=== PATIENT | male | born 1945 | race Caucasian/White ===

== ENCOUNTER 2019-03-30 07:47 | Day surgery (SDC) | payer MEDICARE, OTHER, SELFPAY ==
[2019-03-30] VITALS (8 sets, daily range): BP systolic 89–122; BP diastolic 52–83; PULSE 66–93; RESP 16; TEMP 36.4–36.8; O2SAT 92–99; BMI 33.2
[2019-03-30] MEDS: Cefazolin 2 GM in 0.9% Normal Saline 100 ML IV (10:23)
--- NOTE | 2019-03-30 10:24 | PCM.DC.POR ---
Discharge Diet: No Restrictions Discharge Activity: Return to Normal Activity, May not drive while taking narcotic pain medications. Call your doctor if your incision/area has: Continuous Slow Oozing, Foul Smelling Discharge Call your doctor if you observe: Fever of 101 or Higher Additional Dressing/Incision Instructions:: Leave dressings in place. May get wet in shower. Do not soak - no tub baths/swimming Allergies/Adverse Reactions: Allergies No Known Allergies Allergy (Verified 03/29/19 14:16) Medications to take at Discharge Amlodipine Besylate [Norvasc] 10 mg PO DAILY 03/29/19 Aspirin [Aspir-Low] 81 mg PO QHS 03/29/19 Atorvastatin Calcium [Lipitor] 40 mg PO QHS 03/29/19 Cholecalciferol (Vitamin D3) [Vitamin D3] 1 tab PO DAILY 03/29/19 Multivit-Min/FA/Lycopen/Lutein [Centrum Silver Men Tablet] 1 ea PO DAILY 03/29/19 Prasterone (Dhea) [Dhea 25] 25 mg PO MOWEFR 03/29/19 RX: Benazepril HCl 20 mg PO DAILY 03/29/19 Hydrocodone Bitart/Apap 5-325 [[place] 5MG-325MG] 1 tab PO Q8H PRN PRN 4 Days #10 tab 03/30/19 The following prescriptions were given: Hydrocodone Bitart/Apap 5-325 [[place] 5MG-325MG] 1 tab PO Q8H PRN PRN 4 Days #10 tab PRN Reason: Pain Prescription Printed Primary Care Physician: Mika Garcia [Primary Care Provider] - Test Results: Test results from this visit will be discussed in further detail at your follow-up appointment, if applicable. Please Follow Up With: Linette Britton MD - When: as per needed
--- NOTE | 2019-03-30 11:18 | PCM.OPRPT ---
Report of Operation Date of Procedure: 03/30/19 Pre-Operative Diagnosis: T cell lymphoma, need for IV access for chemotherapy Post-Operative Diagnosis: same Surgery/Procedure Performed:: placement of permanent tunnelled right internal jugular catheter with subcutaneous port Description of Surgical Findings:: normal right internal jugular anatomy to SVC Type of Anesthesia:: Local MAC Anesthesiologist: Jeffrey Mcclendon Specimen's removed: none Estimated Blood Loss (mL): < 10 ml Fluids Replaced: 1000 ml RL Description of Procedure: After informed consent was given, the patient was brought to the operating room. Appropriate time out protocol was followed. He was then placed in the supine position. He was then given IV conscious sedation for anesthesia. The patient?s upper chest and neck were then prepped with a surgical skin preparation and sterile surgical drapes were placed. The ultrasound transducer was brought up within a sterile sheath and placed on the patient's right neck. The right internal jugular vessel was thus identified. The skin at that site was then infiltrated with local anesthetic. A needle trocar was then inserted into the right internal jugular vein and this was visualized with the US transducer. There was good aspiration of venous blood. A wire was then threaded into the needle trocar and this was visualized under fluoroscopy to ensure that the wire was in the right internal jugular vein and followed down to the SVC. Once this was done, then the needle trocar was removed. A small skin reji was made with an 11 blade knife at the wire entrance site. The dilator with the introducer sheath attached was then placed over the wire into the right internal jugular vein via the Seldinger technique and this was visualized under fluoroscopy. The dilator and sheath were in proper position as visualized by fluoroscopy. The wire and dilator were then removed. The catheter was then threaded into the introducer sheath and was positioned with its tip at the junction of the superior vena cava and the right atrium as visualized under fluoroscopy. The catheter was flushed with a heparin saline mixture prior to placement. A subcutaneous pocket was then created caudad to the catheter insertion site. A transverse skin incision was made after the skin and subcutaneous tissues were infiltrated with local anesthetic. Blunt dissection was then used to create a space large enough for placement of the subcutaneous port. Hemostasis was carefully controlled with electrocautery. The port was sutured to the subcutaneous fascia using vicryl suture at three sites. The catheter was then tunneled into the subcutaneous pocket. The excess catheter was transected. The catheter was then attached to the subcutaneous port using information and data architect analyst?s guidelines. The port was then placed in the subcutaneous pocket and the sutures were ligated. The subdermal incisional sites were reapproximated with interrupted vicryl suture. The port was accessed and there was good aspiration of blood, it was then flushed and locked with heparnized saline. The skin was reapproximated with monocryl suture in a subcuticular fashion. Cavilon and steristrips were used for reinforcement of the skin closure and a sterile opsite dressing was applied. The patient was brought to the Recovery Room in stable condition. - Complications none noted - Admit VTE Documentation VTE Present on Admission: Yes VTE Mechan Device Prophylaxis: SCD's
--- NOTE | 2019-03-30 11:33 | RAD_ITS ---
STUDY: X-RAY CHEST REASON FOR EXAM: Male, 73 years old. Port placement TECHNIQUE: Single AP portable view of the chest. Second film is a copy of the first adjusted for line visualization COMPARISON: None. FINDINGS: Right subclavian central venous port is in place, tip is in the mid SVC, no pneumothorax. The lungs are clear and expanded. There is no demonstrated pleural abnormality. Normal size heart. Normal mediastinum and brittnee. Normal visualized pulmonary arteries. Normal visualized aortic arch and descending thoracic aorta. Normal visualized thoracic spine. Normal visualized ribs, clavicles, and shoulders. There is no demonstrated abnormality of the visualized soft tissue structures of the upper abdomen. RAD/CXR for Line Placement IMPRESSION: No acute pulmonary process Right subclavian port tip in the mid SVC Electronically Signed: Jose Kaplan MD at 12:04 EDT , Service support ,
== END 2019-03-30 12:40 | disposition home or self-care (01) ==
LOC: SDC 07:55 → AC 07:58
PROVIDERS: Referring Provider Surgery; Visit Provider Surgery
PROC: (CPT 36571; principal; 2019-03-30 09:45)
DX: C84.79 Anaplastic large cell lymphoma, ALK-negative, extranodal and solid organ sites (principal); F17.210 Nicotine dependence, cigarettes, uncomplicated; E78.00 Pure hypercholesterolemia, unspecified; I10 Essential (primary) hypertension; Z79.82 Long term (current) use of aspirin; Z79.899 Other long term (current) drug therapy
CPT/HCPCS: 00532; 36571; 71045; 77001; J7120; C1788